=== PATIENT | female | born 1975 | race Caucasian/White ===

== ENCOUNTER → 2017-10-08 | Outpatient (CLI) | payer BC ==
[~2017-10-08] MED LIST: CYC10 PO; DAR100 PO; KET10 PO; OND4 PO; PRE50 PO; VER40 PO
--- NOTE | 2017-10-08 11:33 | RADIOLOGY IMAGING REPORT ---
FACILITY: [facility] PATIENT NAME: SENAIT KIDD : [id number] MR: [id number] V: [id number] EXAM DATE: ORDERING PHYSICIAN: MARCO GUILLERMO TECHNOLOGIST: Jessica Bob PROCEDURE:BILATERAL DIGITAL SCREENING MAMMOGRAM WITH CAD ASSISTED INTERPRETATION & 3D TOMOSYNTHESIS COMPARISON:Prior mammogram 05/08/16. INDICATIONS:SCREENING FINDINGS: Dense heterogeneous fibroglandular tissue is seen throughout the breasts. The parenchymal pattern has remained stable allowing for difference in mammographic technique & patient positioning. There is no evidence of malignant appearing mass, malignant appearing calcifications or other secondary sign of malignancy in either breast. DIAGNOSTIC CATEGORY 2--BENIGN FINDING. RECOMMENDATIONS: ROUTINE MAMMOGRAM AND CLINICAL EVALUATION. IMPRESSION: BIRADS 2: Benign finding No significant abnormality is seen. Dictated by: Mitali Prince M.D. on 10/08/2017 at 10:14 Transcribed by: MALIK on 10/08/2017 at 10:58 Approved by: Mitali Prince M.D. on 10/08/2017 at 11:32 [facility]
== END ==
LOC: MAMO 02:20
PROVIDERS: ATTEND Obstetrics & Gynecology
DX: Z12.31 Encounter for screening mammogram for malignant neoplasm of breast (principal)
CPT/HCPCS: 77063; 77067

== ENCOUNTER → 2018-11-05 | Outpatient (CLI) | payer BC ==
--- NOTE | 2018-11-06 14:13 | RADIOLOGY IMAGING REPORT ---
FACILITY: [facility] [place] PATIENT NAME: SENAIT KIDD : [id number] MR: [id number] V: [id number] EXAM DATE: [id number] ORDERING PHYSICIAN: BRIAN ZUNIGA TECHNOLOGIST: Saima Calixto PROCEDURE: BILATERAL DIGITAL SCREENING MAMMOGRAM WITH CAD ASSISTED INTERPRETATION & 3D TOMOSYNTHESIS REASON FOR STUDY: Screening FAMILY HISTORY OF BREAST CANCER: Paternal Aunt BREAST PROCEDURES/TREATMENTS: None COMPARISON: 10/08/17, 05/08/16 VIEWS OBTAINED: Bilateral 2D & 3D full field CC & MLO BREAST DENSITY: The breasts are heterogeneously dense which can obscure small masses. MAMMOGRAM FINDINGS: The parenchymal pattern has remained stable allowing for difference in mammographic technique & patient positioning. ASSESSMENT: BIRADS 1: Negative. DIAGNOSTIC CATEGORY 1--NEGATIVE. RECOMMENDATIONS: ROUTINE MAMMOGRAM AND CLINICAL EVALUATION. Dictated by: Mitali Prince M.D. on 11/06/2018 at 8:27 Transcribed by: PEGGY on 11/06/2018 at 10:19 Approved by: Mitali Prince M.D. on 11/06/2018 at 14:12 [facility]
== END ==
LOC: MAMO 00:24
PROVIDERS: ATTEND Nurse Practitioner Family
DX: Z12.31 Encounter for screening mammogram for malignant neoplasm of breast (principal); Z80.3 Family history of malignant neoplasm of breast
CPT/HCPCS: 77063; 77067

== ENCOUNTER 2019-01-02 19:31 | Emergency (ER) | payer BC ==
[2019-01-02 19:35] VITALS: BP 129/86
--- NOTE | 2019-01-02 19:48 | ER Report ---
History and Physical Time Seen By MD: 19:46 Hx. of Stated Complaint: smashed right foot in elevator HPI/ROS CHIEF COMPLAINT: Crush injury to right foot HISTORY OF PRESENT ILLNESS: 43-year-old female patient persists to emergency room with complaint of crush injury to the right foot. Patient states she was riding in an elevator, she went to step off that for a completely gone up to the floor that they're going to. She states she got her right toes caught between the elevator and the floor. Patient states that she has some numbness and tingling to the first, second, third fingers. Patient states she has less numbness to the fourth and fifth toes. Patient states she was wearing her boots at the time. She states that she is concerned about possible fracture of the toes. Patient states she is not taking any medication for this. REVIEW OF SYSTEMS: Respiratory: No cough, no dyspnea. Cardiovascular: No chest pain, no palpitations. Gastrointestinal: No vomiting, no abdominal pain. Musculoskeletal: As noted above Allergies: Uncoded Allergies: opiates (Adverse Reaction, Mild, 12/12/16) just a sensitivity Home Meds Unable to Obtain Active Prescriptions or Reported Meds Past Medical/Surgical History A shunt has a past medical history of headaches. Patient has a surgical history of back surgery, bilateral carpal tunnel, meniscus surgery. Patient has a family medical history of cancer, diabetes, psychiatric problems. Reviewed Nurses Notes: Yes Hx Substance Use Disorder: No Hx Alcohol Use: No Constitutional Vital Sign - Last 24 Hours 01/02/19 19:35 Temp 97.5 Pulse 62 Resp 20 B/P (MAP) 129/86 Pulse Ox 97 O2 Delivery Room Air Physical Exam General Appearance: The patient is alert, has no immediate need for airway protection and no current signs of toxicity. Respiratory: Chest is non tender, lungs are clear to auscultation. Cardiac: regular rate and rhythm Musculoskeletal: Extremities have full range of motion and are non tender. The toes are red, there is some bruising underneath toenails, there is a abrasion at the base of the third toenail. There is some tenderness to palpation. Skin: No rashes or lesions. DIFFERENTIAL DIAGNOSIS: After history and physical exam differential diagnosis was considered for fracture, contusion. Medical Decision Making EKG/Imaging Imaging EXAMINATION: Right foot 3 views HISTORY: Crush injury to the toes. COMPARISON: None. FINDINGS: No evidence of acute fracture or dislocation about the right foot. Normal alignment. Joint spaces are preserved. Soft tissues are unremarkable. IMPRESSION: Negative right foot. Report Dictated By: Enoc Arora MD at 01/02/2019 8:14 PM Report E-Signed By: Enoc Arora MD at 01/02/2019 8:14 PM ED Course/Re-evaluation ED Course Patient was admitted to an exam room, history and physical were obtained. Differential diagnoses were considered. On examination lungs are clear, heart is regular, toes are red, tender to palpation. X-ray was done of the right foot. There are no signs of fractures. I discussed the findings with patient and her significant other. We will go ahead and discharge her at this time. She states Tylenol, ibuprofen as needed for pain. She is to wear a hard soled shoe that l imits flexion on the toes. She is to ice her toes to 3 times a day for 10-15 minutes. Patient is return to emergency room if condition worsens. Follow-up with her primary care provider in the next week. Patient verbalized understanding treatment plan. Decision to Disposition Date: Jan 02, 2019 Decision to Disposition Time: 20:36 Depart Departure Latest Vital Signs Vital Signs Date Time Temp Pulse Resp B/P (MAP) Pulse Ox O2 Delivery O2 Flow Rate FiO2 01/02/19 19:35 97.5 62 20 129/86 97 Room Air Impression: Primary Impression: Crush injury of toe Condition: Improved Disposition: HOME OR SELF-CARE Referrals: BRIAN ZUNIGA (PCP) New Scripts Unable to Obtain Active Prescriptions or Reported Meds Patient Instructions: Crush Injury (ED) Additional Instructions: Ice your feet 2-3 times a day for 10-15 minutes. Get plenty of rest. Take Tylenol or Ibuprofen as needed for pain. Limit activity by pain. You may work on Friday as long as your pain is tolerable. Return to the ER if condition worsens. Follow up with your primary care provider with any concerns. Problem Qualifiers Primary Impression: Crush injury of toe Encounter type: initial encounter Laterality: right Qualified Codes: S97.101A - Crushing injury of unspecified right toe(s), initial encounter THUY COSTA Jan 02, 2019 19:48
--- NOTE | 2019-01-02 20:20 | RADIOLOGY IMAGING REPORT ---
FACILITY: [facility] [place] PATIENT NAME: Rand Hartmann : 1975 MR: [id number] V: [id number] EXAM DATE: ORDERING PHYSICIAN: THUY COSTA TECHNOLOGIST: Location: [facility] [place] Patient: Rand Hartmann : 1975 Visit/Account:[id number] Date of Sevice: 01/02/2019 EXAMINATION: Right foot 3 views HISTORY: Crush injury to the toes. COMPARISON: None. FINDINGS: No evidence of acute fracture or dislocation about the right foot. Normal alignment. Joint spaces a re preserved. Soft tissues are unremarkable. IMPRESSION: Negative right foot. Report Dictated By: Enoc Arora MD at 01/02/2019 8:14 PM Report E-Signed By: Enoc Arora MD at 01/02/2019 8:14 PM WSN:[id number]
== END 2019-01-02 20:42 | disposition home or self-care (01) ==
LOC: ER 20:08
DX: S97.101A Crushing injury of unspecified right toe(s), initial encounter (principal)
CPT/HCPCS: 99283